=== PATIENT | female | born 1985 | race Caucasian/White ===

== ENCOUNTER 2017-08-19 16:10 | Emergency (ER) | payer MEDICAID, OTHER ==
--- NOTE | 2017-08-19 19:35 | ER ---
Nurse's Notes [facility] Name: Leeann Peraza Age: 31 yrs Sex: Female : 1985 Arrival Date: 08/19/2017 Time: 16:12 Bed Treatment Private MD: Diagnosis: Anxiety disorder, unspecified;Dental pain Presentation: 08/19 16:13 Presenting complaint: Patient states: "I have been clenching my jaw a lot the last few hb days and now it is sore. I am trying to avoid having lockjaw again..". Transition of care: patient was not received from another setting of care. Onset of symptoms was August 19, 2017. Risk Assessment: Do you want to hurt yourself or someone else? Patient reports no desire to harm self or others. Care prior to arrival: None. 16:13 Method Of Arrival: Ambulatory hb 16:13 Acuity: COLIN 4 hb 19:59 Initial Sepsis Screen: Does the patient meet any 2 criteria? No. Patient's initial aj1 sepsis screen is negative. Does the patient have a suspected source of infection? No. Patient's initial sepsis screen is negative. 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 - Social history:: Smoking status: Patient/guardian denies using tobacco. - Ebola Screening: : No symptoms or risks identified at this time. Screenin:57 Abuse screen: Denies threats or abuse. Denies injuries from another. Nutritional aj1 screening: No deficits noted. Tuberculosis screening: No symptoms or risk factors identified. 19:59 Fall Risk None identified. aj1 Assessment: 19:57 General: Appears in no apparent distress. comfortable, Behavior is calm, cooperative, aj1 appropriate for age. Pain: Complains of pain in jaw. Neuro: Level of Consciousness is awake, alert, obeys commands, Oriented to person, place, time, situation. Cardiovascular: Patient's skin is warm and dry. Respiratory: Airway is patent Respiratory effort is even, unlabored, Respiratory pattern is regular, symmetrical. GI: No signs and/or symptoms were reported involving the gastrointestinal system. : No signs and/or symptoms were reported regarding the genitourinary system. EENT: No signs and/or symptoms were reported regarding the EENT system. Derm: No signs and/or symptoms reported regarding the dermatologic system. Skin is pink, warm \\T\\ dry. normal. Musculoskeletal: No signs and/or symptoms reported regarding the musculoskeletal system. Circulation, motion, and sensation intact. Vital Signs: 16:13 BP 155 / 85; Pulse 88; Resp 16; Temp 98; Pulse Ox 99% ; Pain 4/10; hb ED Course: 16:12 Patient arrived in ED. hb 16:14 Triage completed. hb 16:15 Arm band placed on right wrist. hb 19:20 Niels Daniel MD is Attending Physician. kdr 19:57 Lela No, RN is Primary Nurse. aj1 19:57 Patient has correct armband on for positive identification. Bed in low position. Call aj1 light in reach. Side rails up X 1. 19:57 No provider procedures requiring assistance completed. Patient did not have IV access aj1 during this emergency room visit. Administered Medications: No medications were administered Outcome: 19:35 Discharge ordered by . kdr 19:57 Discharged to home ambulatory. aj1 19:57 Condition: good 19:57 Discharge instructions given to patient, Instructed on discharge instructions, follow up and referral plans. medication usage, Demonstrated understanding of instructions, follow-up care, medications, Prescriptions given X 1. 19:59 Patient left the ED. aj1 Signatures: Lela No, RN RN aj Niels Daniel MD MD [facility] Donna Mercer RN RN
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
== END 2017-08-19 19:59 | disposition home or self-care (01) ==
LOC: ER 16:10
DX: F41.9 Anxiety disorder, unspecified (principal); Z88.2 Allergy status to sulfonamides; Z91.02 Food additives allergy status
CPT/HCPCS: 99282